=== PATIENT | female | born 1990 | race Two or more races ===

== ENCOUNTER 2021-02-22 11:09 | Inpatient (IN) | payer OTHER ==
[~2021-02-22] VITALS: Ht 162.6 cm; Wt 124.7 kg
== END 2021-02-22 20:41 | disposition designated cancer center or children's hospital (05) | DRG 832 ==
LOC: OBS/DEL 11:09 → LDR 15:31 → OBS/DEL 15:31 → LDR 20:41
PROVIDERS: ADMIT Obstetrics & Gynecology; ATTEND Obstetrics & Gynecology
PROC: BY4CZZZ Ultrasonography of Second Trimester, Single Fetus (ICD-10-PCS; principal; 2021-02-22)
PROC: 4A1HXCZ Monitoring of Products of Conception, Cardiac Rate, External Approach (ICD-10-PCS; 2021-02-22)
DX: O42.012 Preterm premature rupture of membranes, onset of labor within 24 hours of rupture, second trimester (principal); O10.012 Pre-existing essential hypertension complicating pregnancy, second trimester; O35.0XX0 Maternal care for (suspected) central nervous system malformation in fetus, not applicable or unspecified; O35.3XX0 Maternal care for (suspected) damage to fetus from viral disease in mother, not applicable or unspecified; O99.891 Other specified diseases and conditions complicating pregnancy; O99.212 Obesity complicating pregnancy, second trimester; Z3A.20 20 weeks gestation of pregnancy; Z20.822 Contact with and (suspected) exposure to COVID-19